=== PATIENT | male | born 1965 | race Caucasian/White ===

== ENCOUNTER 2018-06-13 06:40 | Emergency (ER) | payer OTHER ==
[~2018-06-13] VITALS: Ht 182.9 cm; Wt 120.2 kg
[2018-06-13 06:47] VITALS: Ht 182.9 cm; Wt 120.2 kg
[2018-06-13] MEDS ORDERED: FISH OIL 1,0001 CA1 PO (06:48)
[2018-06-13] MEDS ORDERED: NEXIUM20 MG (06:48)
[2018-06-13] MEDS ORDERED: BP MED (06:48)
[2018-06-13 07:31] LABS: BASOPHILS 0.1 % (0-2); EOSINOPHILS 0.1 % (0-7); HEMATOCRIT 46.6 % (42.0-54.0); HEMOGLOBIN 14.8 g/dL (13.5-17.5); IMMATURE GRANULOCYTES 0.2 % (0-5); LYMPHOCYTES 4.3 % (15-50); MCH 25.6 pg (26.0-34.0); MCHC 31.8 g/dL (31.0-37.0); MCV 80.6 fL (80.0-100.0); MEAN PLATELET VOLUME 10.1 fL (7.4-10.4); MONOCYTES 7.3 % (2-11); PLATELET COUNT 215 10x3/uL (130-400); RBC 5.78 10x6/uL (4.20-6.10); RDW 16.5 % (11.5-14.5); WBC 12.1 10x3/uL (4.8-10.8)
[2018-06-13 07:53] LABS: ALBUMIN 3.9 g/dL (3.4-5.0); ANION GAP 14.8 mmol/L (8-16); BILIRUBIN - TOTAL 0.54 mg/dL (0.2-1.3); CALCIUM 8.9 mg/dL (8.5-10.1); CARBON DIOXIDE 28.9 mmol/L (21.0-32.0); CREATININE - SERUM 1.4 mg/dL (0.6-1.3); POTASSIUM - SERUM 4.7 mmol/L (3.5-5.1); PROTEIN - SERUM 7.6 g/dL (6.4-8.2)
[2018-06-13] MEDS ORDERED: ZOFRAN ODT4 MG/UDTAB PO (10:01)
[2018-06-13] MEDS ORDERED: LEVAQUIN750 MG PO (10:01)
[2018-06-13] MEDS ORDERED: FLORASTOR250 MG PO (10:01)
[2018-06-13] MEDS ORDERED: FLAGYL500 MG PO (10:01)
[2018-06-13 10:40] VITALS: BP 160/48
== END 2018-06-13 10:40 | disposition home or self-care (01) ==
LOC: D.ER 06:40
PROVIDERS: Family Medicine
DX: K52.9 Noninfective gastroenteritis and colitis, unspecified (principal); R73.9 Hyperglycemia, unspecified; N28.9 Disorder of kidney and ureter, unspecified; D72.829 Elevated white blood cell count, unspecified; K76.9 Liver disease, unspecified; R11.2 Nausea with vomiting, unspecified